=== PATIENT | male | born 2000 | race Caucasian/White ===

== ENCOUNTER 2019-12-23 06:49 | Day surgery (SDC) | payer OTHER ==
[~2019-12-23] VITALS: Ht 167.6 cm; Wt 58.5 kg
[~2019-12-23 06:49] MED LIST: EFFEXOR XR75 MG PO; TRAZODONE HCL100 MG PO
[2019-12-23 07:47] VITALS: BP 120/58; Ht 167.6 cm; Wt 58.5 kg
[2019-12-23 08:05] LABS: HEMOGLOBIN 16.3 g/dL (13.5-17.5); MCH 30.9 pg (26.0-34.0); MCHC 33.3 g/dL (31.0-37.0); MEAN PLATELET VOLUME 11.2 fL (7.4-10.4); RBC 5.27 10x6/uL (4.20-6.10); RDW 13.6 % (11.5-14.5); WBC 6.7 10x3/uL (4.8-10.8)
[2019-12-23 08:12] LABS: ALBUMIN 4.4 g/dL (3.4-5.0); ALKALINE PHOSPHATASE 118 U/L (30-120); ALT (SGPT) 17 U/L (10-68); BILIRUBIN - TOTAL 1.42 mg/dL (0.2-1.3); CALC OSMOLALITY 284 mosm/kg (275-300); CALCIUM 9.3 mg/dL (8.5-10.1); CARBON DIOXIDE 30.8 mmol/L (21.0-32.0); CHLORIDE - SERUM 104 mmol/L (98-107); GLUCOSE 90 mg/dL (74-106); POTASSIUM - SERUM 3.7 mmol/L (3.5-5.1); PROTEIN - SERUM 7.7 g/dL (6.4-8.2); SODIUM 142 mmol/L (136-145); UREA NITROGEN 18 mg/dL (7-18); eGFR NON AFRICAN AMERICAN > 90 mL/min (90-120)
[2019-12-23 08:15] LABS: INR 1.11 (0.85-1.17); PROTIME 14.2 SECONDS (11.6-15.0)
[2019-12-23 08:16] LABS: APTT 28.1 SECONDS (22.8-39.4)
--- NOTE | 2019-12-23 11:52 | NUR ---
OPA IN AIRWAY ON ADMIT
--- NOTE | 2019-12-23 12:39 | NUR ---
1220 NO VISABLE BLEEDING FROM SURGICAL SITE.
--- NOTE | 2019-12-23 13:21 | HP ---
PATIENT: CAMACHO CASTRO MEDICAL RECORD: [id number] ACCOUNT: [id number] [facility] ADMISSION DATE: 12/23/19 PCP: JOHN PAUL MEREDITH MD HISTORY AND PHYSICAL EXAMINATION HISTORY: Kale is 19. He has been having recurrent problems for many years with pharyngitis. He has been admitted for tonsillectomy and adenoidectomy. PAST MEDICAL HISTORY: Liver disease. CURRENT MEDICATIONS: Trazodone, venlafaxine. ALLERGIES: No known drug allergies. PHYSICAL EXAMINATION: GENERAL: Healthy-appearing, developmentally normal. FACE: Normal, symmetric, no lesions. EYES: Sclerae and conjunctivae are normal. NOSE: No mass, polyps or drainage. ORAL CAVITY AND OROPHARYNX: Large cryptic tonsils, deep pits, lots of tonsilliths. NECK: No masses, no adenopathy. CHEST: Clear. CARDIOVASCULAR: Regular rate and rhythm, no murmur. EXTREMITIES: Normal. IMPRESSION: Chronic caseous pharyngitis. PLAN: Tonsillectomy and adenoidectomy. TRANSINT:[id number] Voice Confirmation ID: [id number] DOCUMENT ID: [id number] JOHN PAUL MEREDITH MD at 1321 CC: [id number] DICTATION DATE: 12/22/19 1058 MOLD MOVER: 12/22/19 1134 [facility] [place] [id number] [place] [id number]
--- NOTE | 2019-12-26 08:18 | OP ---
PATIENT NAME: CAMACHO CASTRO MEDICAL RECORD: [id number] :98 [facility] ADMISSION DATE: SURGEON: JOHN PAUL AMEZQUITA MD DATE OF OPERATION: 12/23/2019 PREOPERATIVE DIAGNOSIS: Chronic pharyngitis. POSTOPERATIVE DIAGNOSIS: Chronic pharyngitis. PROCEDURE: Tonsillectomy and adenoidectomy. SURGEON: John Paul Amezquita MD ANESTHESIA: General orotracheal. BLOOD LOSS: 5 cc. SPECIMENS: Right and left tonsil. COMPLICATIONS: None. DISPOSITION: Recovery stable. PROCEDURE NOTE: He was brought to operating room and placed in supine position, sedated and intubated by anesthesia. The table was turned 90 degrees. Head drape was applied. He was positioned for tonsillectomy. Using a headlight, a Araceli-Kenny mouth gag was carefully inserted and elevated on a towel on his chest. The palate was examined and palpated as normal. A red rubber catheter was let the right side the nose and pharynx was grasped with tonsil clamp to retract the soft palate. Using a mirror, the nasopharynx was examined. Suction cautery on 35 was used to ablate and suction the adenoid pad with no significant bleeding. Choanae and eustachian orifices were normal. The red rubber catheter was let down and removed. The right tonsil was grasped at the superior pole with a straight Allis clamp. Spatula tip cautery on a setting of 8 was used to dissect out the tonsil along its capsule, preserving the anterior and posterior tonsillar pillar. The left tonsil was removed in the same fashion. Then, both sides of the nose irrigated with saline. The pharynx was suctioned. Tonsillar fossae were agitated. Suction cautery on a setting of 18 was used to control minimal oozing. With the field clean and dry, a Araceli-Kenny mouth gag was let down and removed. He was awakened, extubated, and transported to recovery in good condition. No complications. TRANSINT:[id number] Voice Confirmation ID: [id number] DOCUMENT ID: [id number] JOHN PAUL AMEZQUITA MD at 0818 CC: [id number] DICTATION DATE: 12/23/19 1157 MOLD FINISHER: 12/23/192052 [facility] 12/23/19 [facility] [address] [place] [address]
== END 2019-12-23 13:15 | disposition home or self-care (01) ==
LOC: D.OPS 06:49 → D.PAN 08:50 → D.OPS 09:05 → D.PAN 09:20 → D.OPS 11:15
PROVIDERS: Anesthesiology; ATTEND Otolaryngology
DX: J95.830 Postprocedural hemorrhage of a respiratory system organ or structure following a respiratory system procedure (principal)

== ENCOUNTER 2019-12-23 20:58 | Day surgery (SDC) | payer OTHER ==
[~2019-12-23] VITALS: Ht 167.6 cm; Wt 72.7 kg
--- NOTE | ~2019-12-23 | OP ---
PATIENT NAME: CAMACHO CASTRO MEDICAL RECORD: [id number] :98 [facility] ADMISSION DATE: SURGEON: JOHN PAUL AMEZQUITA MD DATE OF OPERATION: 12/23/2019 PREOPERATIVE DIAGNOSIS: Post-tonsillectomy hemorrhage. POSTOPERATIVE DIAGNOSIS: Post-tonsillectomy hemorrhage. PROCEDURE: Control post-tonsillectomy hemorrhage. SURGEON: John Paul Amezquita MD ANESTHESIA: General orotracheal. BLOOD LOSS: Less than 10 cc during the procedure. COMPLICATIONS: None. SPECIMENS: None. DISPOSITION: Recovery stable. DESCRIPTION OF PROCEDURE: He was brought to the operating room and placed in supine position, sedated and intubated by anesthesia. The eyes were taped. Table was turned 90 degrees. Head drapes applied and he was positioned for tonsillectomy. Using a headlight, a Araceli-Kenny mouth gag was carefully inserted and elevated on a towel on his chest. His bleeding had been intermittent. On exam, the pharynx was clean and dry bilaterally. Both tonsil fossae looked normal. I irrigated the pharynx with saline. Agitated both sides with Yankauer suction and in the right side, multiple areas were bleeding. The left side just a couple of areas. When placed on the right side, it was more prominent than the other. Suction cautery on a setting of 18 easily stopped all the bleeding from the pharynx. The procedure was repeated with saline and agitation with plastic Yankauer suction. Everything was normal, clean, and dry. Passed NG tube into the stomach through the mouth, a 16-Turkish 3 separate times, evacuated stomach contents. Then, let down the mouth gag for a few minutes, raised it back up again to examine the tonsil fossae, agitated with Yankauer suction. There really was no bleeding. A mirror was used to examine the nasopharynx and suctioned area was normal as well. Mouth gag was let down and removed. He was awakened, extubated, and transported to recovery in good condition. No complication. TRANSINT:[id number] Voice Confirmation ID: [id number] DOCUMENT ID: [id number] JOHN PAUL AMEZQUITA MD CC: [id number] DICTATION DATE: 12/27/19 1024 J2EE CONSULTANT: 12/27/19 1435 [facility] 12/24/19 [facility] [address] [place] [address]
[2019-12-23 21:04] VITALS: Ht 167.6 cm; Wt 72.7 kg
[2019-12-23 21:16] LABS: BASOPHILS 0 % (0-2); EOSINOPHILS 0.1 % (0-7); HEMATOCRIT 47.8 % (42.0-54.0); HEMOGLOBIN 16.6 g/dL (13.5-17.5); IMMATURE GRANULOCYTES 0.3 % (0-5); LYMPHOCYTES 4.9 % (15-50); MCH 31.7 pg (26.0-34.0); MCHC 34.7 g/dL (31.0-37.0); MCV 91.2 fL (80.0-100.0); MEAN PLATELET VOLUME 11.3 fL (7.4-10.4); MONOCYTES 1.2 % (2-11); NEUTROPHILS 93.5 % (40-80); PLATELET COUNT 230 10x3/uL (130-400); RBC 5.24 10x6/uL (4.20-6.10); RDW 13.2 % (11.5-14.5)
[2019-12-23 21:28] LABS: WBC 17.5 10x3/uL (4.8-10.8)
[2019-12-23 21:33] LABS: CALC OSMOLALITY 275 mosm/kg (275-300); CALCIUM 9.7 mg/dL (8.5-10.1); CARBON DIOXIDE 26.7 mmol/L (21.0-32.0); CHLORIDE - SERUM 100 mmol/L (98-107); CREATININE - SERUM 1.1 mg/dL (0.6-1.3); GLUCOSE 125 mg/dL (74-106); SODIUM 137 mmol/L (136-145); UREA NITROGEN 16 mg/dL (7-18); eGFR NON AFRICAN AMERICAN 90 mL/min (90-120)
[2019-12-23 21:34] LABS: APTT 29.4 SECONDS (22.8-39.4); INR 1.07 (0.85-1.17); PROTIME 13.8 SECONDS (11.6-15.0)
[2019-12-23 21:39] LABS: ALBUMIN 4.6 g/dL (3.4-5.0); ALKALINE PHOSPHATASE 127 U/L (30-120); ALT (SGPT) 14 U/L (10-68); BILIRUBIN - TOTAL 1.98 mg/dL (0.2-1.3); PROTEIN - SERUM 8.3 g/dL (6.4-8.2)
--- NOTE | 2019-12-23 22:54 | NUR ---
DR. MEREDITH CAME AND BREIFED ME ON THE PATIENT. HE TOLD ME TO ORDER LORTAB 10CC Q4HPRN. HE ALSO SAID THAT THE PATIENT CAN DISCHARGE IN THE MORNING IF NOT N/V OR FEELING BAD. IF PATIENT IS SYMPTOMATIC, DR. MEREDITH WILL SEE HIM AT LUNCH OR SO.
--- NOTE | 2019-12-23 22:56 | NUR ---
PATIENT SLEEPING. AROUSED BY COMMANDS. MUMBLES.
[2019-12-23 23:00] VITALS: BP 155/68
[2019-12-23 23:15] VITALS: BP 148/73
--- NOTE | 2019-12-23 23:15 | NUR ---
PATIENT ARRIVED ON FLOOR VIA BED WITH MOM AT BEDSIDE. NO S/S OF ACUTE DISTRESS. NO C/O AT THIS TIME. PATIENTWAS SPITTING UP BROWN OR OLD BLOOD. PATIENT SAID THAT IT WAS A LOT BETTER THAN WHAT IT WAS BEFORE. PATIENT HAS A RIGHT FOREARM, NORMAL SALINE @ 75 ML/HR. IV IS PATENT WITHOUT REDNESS, SWELLING, OR TENDERNESS. PATIENT GOT UP TO USE THE BATHROOM AND WAS VERY STEADY. PATIENT VITALS ARE STABLE. PATIENT WAS HUNGRY AND ATE APPLESAUCE, VANILLA ICE CREAM, AND A VINALLE PUDDING. CALL LIGHT WITHIN REACH. WILL CONTINUE TO MONITOR.
[2019-12-23 23:45] VITALS: BP 123/58
[2019-12-24] VITALS: BP 111/50
[2019-12-24 04:00] VITALS: BP 100/43
--- NOTE | 2019-12-24 04:03 | NUR ---
RN NOTE: PT RESTING QUIETLY AT THIS TIME. IV TO RIGHT FA PATENT WITH NS INFUSING AT 75 ML/HR. WILL EVAL EARLY AM FOR DISCHARGE.
--- NOTE | 2019-12-24 06:49 | NUR ---
PATIENT GIVEN DR. MEREDITH'S NUMBER AND TOLD TO CALL IN THREE DAYS OR IN THE EVENT THAT SOMETHING STARTS BLEEDING AGAIN. VITALS ARE STABLE. PATIENT HAS NO C/O AT THIS TIME. NO FURTHER QUESTIONS. PATIENT WAS BROUGHT BY WHEELCHAIR TO MOTHER'S CAR.
--- NOTE | 2019-12-24 06:52 | NUR ---
IV TAKEN OUT OF RIGHT FOREARM. CATHETER TIP INTACT.
== END 2019-12-24 07:21 | disposition home or self-care (01) ==
LOC: D.OPS 20:58 → D.ER 20:58 → EDSTATUS 21:48 → D.MS 22:15 → D.OPS 12-24 07:21
PROVIDERS: Family Medicine; ATTEND Otolaryngology
DX: I97.618 Postprocedural hemorrhage of a circulatory system organ or structure following other circulatory system procedure (principal)